=== PATIENT | male | born 1955 | race Caucasian/White ===

== ENCOUNTER 2019-08-04 20:51 | Inpatient (IN) ==
[2019-08-04] MEDS ORDERED: ALBUTEROL SULFATE/IPRATROPIUM 3 ML NEBU IH ONE (21:04)
[2019-08-04] MEDS ORDERED: ALBUTEROL SULFATE 2.5 MG/0.5 ML VIAL.NEB IH ONE (21:08)
[2019-08-04] MEDS ORDERED: METHYLPREDNISOLONE SOD SUCC/PF 125 MG/2 ML VIAL IV ONE (21:11)
--- NOTE | 2019-08-04 21:18 | ERNOTE ---
Dyspnea - Date Date of Service: 08/04/19 - General Presenting Symptoms: shortness of breath, difficulty of breathing, wheezing Time Seen by Provider: 08/04/19 21:04 Source: patient, family Exam Limitations: no limitations - Immun/Allergies/Home Medications Allergies/Adverse Reactions: Allergies No Known Allergies Allergy (Verified 08/04/19 21:00) Home Medications: HOME MEDICATIONS ibuprofen-diphenhydramine citrate 200 mg-38 mg tablet 1 cap PO HS 12/27/18 [Last Taken Unknown] aspirin 81 mg tablet,delayed release 81 mg PO DAILY 03/09/19 [Last Taken Unknown] albuterol sulfate 90 mcg/actuation aerosol inhaler 2 puff IH QID PRN #18 g 03/20/19 [Last Taken Unknown] amlodipine 10 mg tablet 10 mg PO DAILY #90 tab 03/20/19 [Last Taken Unknown] losartan 100 mg tablet 100 mg PO DAILY #90 tab 03/20/19 [Last Taken Unknown] atorvastatin 80 mg tablet See Rx Instructions .ROUTE .COMPLEX #90 tablet 06/14/19 [Last Taken Unknown] cholecalciferol (vitamin D3) 2,000 unit capsule 2,000 unit PO DAILY #100 cap 06/19/19 [Last Taken Unknown] metoprolol tartrate 50 mg tablet 50 mg PO BID #60 tab 06/19/19 [Last Taken Unknown] omeprazole 20 mg capsule,delayed release 20 mg PO DAILY #90 cap 06/19/19 [Last Taken Unknown] sertraline 100 mg tablet 100 mg PO DAILY #90 tab 06/19/19 [Last Taken Unknown] - History of Present Illness Narrative: Patient is a 64 years old male brought in by his with shortness of breath, difficulty breathing, and wheezing. Patient reports waking up at 5:30 in the morning today with wheezing. He took a nebulizing treatment of albuterol, with mild improvement, but this evening his SOB worsen. Patient reports being an everyday smoker of a pack a day. His report that he was told one that his lungs functions are only at 65%. Patient also has hypertension and was told he had a thoracic abdominal aorta aneurysm that is monitor. 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 Initiating event: Reports: upper resp illness, exposure to smoke Frequency of episodes: Reports: occassional episodes Modifying Factors - (Improves): Reports: activity, albuterol, oxygen, coughing Modifying Factors (Worsens): Reports: coughing, lying down, other - smoking Associated Symptoms-Dyspnea: Reports: cough, wheezing Review of Systems - Review of Systems Constitutional: Absent: fever EYE: Absent: blurred vision ENT: Absent: ear pain Respiratory: Present: shortness of breath, cough, orthopnea, wheezing Cardiology: Absent: chest pain Gastrointestinal/Abdominal: Absent: nausea, vomiting, abdominal pain Genitourinary: Absent: dysuria Musculoskeletal: Absent: back pain Skin: Absent: rash Hematologic/Lymphatic: Absent: easy bruising All Other Systems: All systems neg except as marked Medical History (Last Reviewed 08/05/19 @ 00:42 by Padma Stevenson RN) Peripheral vascular disease (Chronic) GERD (gastroesophageal reflux disease) (Chronic) Hyperlipidemia (Chronic) Hypertension (Chronic) Carotid artery calcification (Chronic) GERD (gastroesophageal reflux disease) (Chronic) Current every day smoker (Chronic) AAA (abdominal aortic aneurysm) without rupture (Chronic) COPD with asthma (Chronic) Insomnia (Chronic) Major depression (Chronic) AAA (abdominal aortic aneurysm) 3.2 x 3.4 cm (-2015) 3.4 x 3.3 cm (-2016) Bursitis of left elbow Onset Date: 12/25/18 Hyperlipidemia due to dietary fat intake Onset Date: ~2015 LDL 220 Hypertension Onset Date: 12/09/15 Surgical History: Surgical History (Last Reviewed 08/05/19 @ 00:43 by Padma Stevenson RN) History of esophagogastroduodenoscopy (EGD) Eosophageal dilation (2014); Barretts esophagus, hiatal hernia Dr.P sanchez; 3mm sliding hiatal hernia, balloon dilation, NL esophagus (08-26-17) Hx of colectomy Onset Date: ~2014 8- " large colon removed Hx of colonoscopy 2014 Several polyps 08/26/2017 : 5mm polyp, distal sigmoid, pancolonic diverticulosis- recheck in 5 years Family History: Family History (Last Reviewed 08/05/19 @ 00:43 by Padma Stevenson RN) Brother , @ age 67 Liver failure Diabetes Obesity Father , @ age 81 No problems noted. Social History: (Last Reviewed 08/05/19 @ 00:43 by Padma Stveenson RN) Social History: Marital status: lives independently: Yes household members: spouse number of children: 3 current occupational status: retired current occupation: retired [employer] Highest education level completed: high school graduate Service: No Tobacco: Smoking Status: Current every day smoker tobacco type: cigarettes Smoking cigarettes per day: 20.0 Smoking packs per day: 1 Alcohol: alcohol intake: current Alcohol type: beer alcohol intake frequency: 3 or more drinks per day Substance Use: substance use type: does not use Dietary Habits: caffeine: Yes Type: coffee Physical Exam - Physical Exam General Appearance: Present: alert, moderate distress Head Exam: Present: normal inspection Eye Exam: Normal inspection: bilateral Ears, Nose, Throat: Present: normal ENT inspection Neck: Present: normal inspection Respiratory: Present: respiratory distress, decreased breath sounds, wheezing, other - tachypneic Back Exam: Present: normal inspection Extremity Exam: Present: normal inspection Neurological Exam: Present: alert Progress - Vital Signs Vital Signs: Vital Signs 08/04/19 20:56 Temperature 37.4 C Pulse Rate 87 Respiratory Rate 32 H Blood Pressure 194/102 H O2 Sat by Pulse Oximetry 93 - EKG EKG #1 EKG: NSR - X-Ray X-Ray #1 Interpretation: Interp. by me, Reviewed by me - No acute cardiopulmonary findings, flattening of the diaphragm and hyperinflated lungs consistent with COPD - Progress/Reassessment Chief Complaint: Dyspnea - Transfer of Care Expected Disposition: Admit Plan - Plan Plan: patient is a 64 years old male who presented short of breath, tachypneic, and wheezing, on arrival he was given an hour DuoNeb treatment, 125 mg of Solu- Medrol, and 1 gm of ceftriaxone which improved his tachypnea, wheezing, and breathing. He was ambulated to check his oxygenation and he desaturated at 88% on room air. His labs were unremarkable, I discussed with him and his family my recommendation of admitting for COPD exacerbation treatment with antibiotic, corticosteroid and regular neb treatment until improvement of saturation. Patient agreed with hospitalization, case was discussed with Dr. Alvarado who accepted admission. Departure Clinical Impression: COPD exacerbation - Departure Disposition: Still a patient Condition: Fair
[2019-08-04 21:23] LABS: Hemoglobin 14.6 gm/dL (13.5-18.0); Mean Cell Volume 97.2 fl (78-100); Mean Corpuscular Hemoglobin 33.8 pg (27-31); Mean Corpuscular Hgb Conc 34.8 g/dl (32-36); Mean Platelet Volume 8.6 fl (8-11.3); Neutrophil # 5.4 K/mm3 (1.3-6.0); Neutrophil % 67.2 % (42-75.0); Platelet Count 212 K/mm3 (150-450); Red Blood Count 4.32 M/mm3 (4.7-6.0); Red Cell Distribution Width 12.1 % (11.5-14.0); White Blood Count 8.1 K/mm3 (4.0-10.5)
[2019-08-04 21:42] LABS: ALT 63 U/L (19-67); AST 40 U/L (0-48); Alkaline Phosphatase * 104 U/L (50-170); Anion Gap 14.3 mmol/L (6.8-13.8); BUN/Creatinine Ratio 15.6 (9.0-21.6); Bilirubin, Total 0.2 mg/dL (0.0-1.1); Blood Urea Nitrogen 12 mg/dL (6-23); Ca. Corrected For Albumin 8.9 mg/dL (8.4-10.2); Calcium * 9.2 mg/dL (7.9-10.9); Carbon Dioxide 25.8 mmol/L (24-32.6); Chloride 98 mmol/L (97-106); Glucose * 106 mg/dL (70-110); Potassium 4.1 mmol/L (3.4-4.6); Sodium 134 mmol/L (132-142)
[2019-08-04 21:44] LABS: Troponin I Less than 0.017 ng/mL (0.00-0.10)
[2019-08-05] MEDS ORDERED: cefTRIAXone SODIUM 1,000 MG/100 ML BAG IV ONE (00:10)
[2019-08-05 07:47] LABS: Urine Bilirubin Negative (NEGATIVE); Urine Blood Negative /ul (NEGATIVE); Urine Ketone Negative (NEGATIVE); Urine Nitrite Negative (NEGATIVE); Urine Protein Negative (NEGATIVE); Urine Urobilinogen Normal (NORMAL)
[2019-08-05 07:55] LABS: Urine Appearance Clear (CLEAR); Urine Bacteria TRACE; Urine Color Yellow; Urine RBC None Seen /hpf (0-5); Urine WBC 0-5 /hpf (0-5)
[2019-08-05] MEDS ORDERED: AZITHROMYCIN 250 MG TABLET PO ONE (10:23)
--- NOTE | 2019-08-05 10:26 | HPDIS ---
Chief Complaint - Chief Complaint Date of Service: 08/05/19 Time of Service: 10:26 Medical History (Last Reviewed 08/05/19 @ 00:42 by Padma Stevenson RN) Peripheral vascular disease (Chronic) GERD (gastroesophageal reflux disease) (Chronic) Hyperlipidemia (Chronic) Hypertension (Chronic) Carotid artery calcification (Chronic) GERD (gastroesophageal reflux disease) (Chronic) Current every day smoker (Chronic) AAA (abdominal aortic aneurysm) without rupture (Chronic) COPD with asthma (Chronic) Insomnia (Chronic) Major depression (Chronic) AAA (abdominal aortic aneurysm) 3.2 x 3.4 cm (-2015) 3.4 x 3.3 cm (-2016) Bursitis of left elbow Onset Date: 12/25/18 Hyperlipidemia due to dietary fat intake Onset Date: ~2015 LDL 220 Hypertension Onset Date: 12/09/15 Surgical History: Surgical History (Last Reviewed 08/05/19 @ 00:43 by Padma Stevenson RN) History of esophagogastroduodenoscopy (EGD) Eosophageal dilation (2014); Barretts esophagus, hiatal hernia ; 3mm sliding hiatal hernia, balloon dilation, NL esophagus (08-26-17) Hx of colectomy Onset Date: ~2014 8- " large colon removed Hx of colonoscopy 2014 Several polyps 08/26/2017 : 5mm polyp, distal sigmoid, pancolonic diverticulosis- recheck in 5 years Family History: Family History (Last Reviewed 08/05/19 @ 00:43 by Padma Stevenson, FRANCOIS) Brother , @ age 67 Liver failure Diabetes Obesity Father , @ age 81 No problems noted. Social History: (Last Reviewed 08/05/19 @ 00:43 by Padma Stevenson, FRANCOIS) Social History: Marital status: lives independently: Yes household members: spouse number of children: 3 current occupational status: retired current occupation: retired [employer] Highest education level completed: high school graduate Service: No Tobacco: Smoking Status: Current every day smoker tobacco type: cigarettes Smoking cigarettes per day: 20.0 Smoking packs per day: 1 Alcohol: alcohol intake: current Alcohol type: beer alcohol intake frequency: 3 or more drinks per day Substance Use: substance use type: does not use Dietary Habits: caffeine: Yes Type: coffee Allergies/Adverse Reactions: Allergies Allergy/AdvReac Type Severity Reaction Status Date / Time No Known Allergies Allergy Verified 08/04/19 21:00 Home Medications: HOME MEDICATIONS ibuprofen-diphenhydramine citrate 200 mg-38 mg tablet 1 cap PO HS 12/27/18 [Last Taken 08/04/19] aspirin 81 mg tablet,delayed release 81 mg PO DAILY 03/09/19 [Last Taken 08/04/19] albuterol sulfate 90 mcg/actuation aerosol inhaler 2 puff IH QID PRN #18 g 03/20/19 [Last Taken 08/04/19] amlodipine 10 mg tablet 10 mg PO DAILY #90 tab 03/20/19 [Last Taken 08/04/19] losartan 100 mg tablet 100 mg PO DAILY #90 tab 03/20/19 [Last Taken 08/04/19] cholecalciferol (vitamin D3) 2,000 unit capsule 2,000 unit PO DAILY #100 cap 06/19/19 [Last Taken 08/04/19] metoprolol tartrate 50 mg tablet 50 mg PO BID #60 tab 06/19/19 [Last Taken 08/04/19] omeprazole 20 mg capsule,delayed release 20 mg PO DAILY #90 cap 06/19/19 [Last Taken 08/04/19] sertraline 100 mg tablet 100 mg PO DAILY #90 tab 06/19/19 [Last Taken 08/04/19] Atorvastatin Calcium [Lipitor] 80 mg PO HS 08/05/19 [Last Taken 08/04/19] Magnesium 250 mg PO DAILY 08/05/19 [Last Taken 08/04/19] Exam - Exam Vital Signs: Vital Signs - Last Taken Temp 36.3 C 08/05/19 08:44 Pulse 86 08/05/19 08:44 Resp 20 08/05/19 08:44 BP 156/85 H 08/05/19 08:44 Pulse Ox 93 08/05/19 08:44 Diagnostic Studies: Abnormal Lab Results 08/04/19 08/04/19 08/04/19 Range/Units 21:08 21: 21: RBC 4.32 L (4.7-6.0) M/mm3 MCH 33.8 H (27-31) pg Lymphocytes % 16.1 L (20-51) % Monocytes % 12.4 H (0.0-9) % Lymphocytes # 1.30 L (1.5-3.5) k/mm3 pO2 70.3 L (83.0-108.0) mmHg Total CO2 26.3 H (19.0-24.0) mmol/L Anion Gap 14.3 H (6.8-13.8) mmol/L Procalcitonin (0.05-0.50) ng/mL 08/04/19 Range/Units 21:19 RBC (4.7-6.0) M/mm3 MCH (27-31) pg Lymphocytes % (20-51) % Monocytes % (0.0-9) % Lymphocytes # (1.5-3.5) k/mm3 pO2 (83.0-108.0) mmHg Total CO2 (19.0-24.0) mmol/L Anion Gap (6.8-13.8) mmol/L Procalcitonin Less than 0.05 L (0.05-0.50) ng/mL Laboratory Results WBC 8.1 K/mm3 (4.0-10.5) 08/04/19 21:19 RBC 4.32 M/mm3 (4.7-6.0) L 08/04/19 21:19 Hgb 14.6 gm/dL (13.5-18.0) 08/04/19 21: Hct 42.0 % (42.0-52.0) 08/04/19 21: MCV 97.2 fl (78-100) 08/04/19 21:19 MCH 33.8 pg (27-31) H 08/04/19 21: MCHC 34.8 g/dl (32-36) 08/04/19 21: RDW 12.1 % (11.5-14.0) 08/04/19 21: Plt Count 212 K/mm3 (150-450) 08/04/19 21: MPV 8.6 fl (8-11.3) 08/04/19 21: Immature Gran % (Auto) 0.40 % (0.001-0.429) 08/04/19 21: Immature Gran # (Auto) 0.03 K/mm3 (0.000-0.0310) 08/04/19 21: Neutrophils % 67.2 % (42-75.0) 08/04/19 21:19 Lymphocytes % 16.1 % (20-51) L 08/04/19 21: Monocytes % 12.4 % (0.0-9) H 08/04/19 21:19 Eosinophils % 3.0 % (0.0-3.0) 08/04/19 21: Basophils % 0.9 % (0.0-1.0) 08/04/19 21: Nucleated RBC % 0.0 k/mm3 (0-1) 08/04/19 21: Neutrophils # 5.4 K/mm3 (1.3-6.0) 08/04/19 21: Lymphocytes # 1.30 k/mm3 (1.5-3.5) L 08/04/19 21: Monocytes # 1.0 k/mm3 (0.0-1.0) 08/04/19 21: Eosinophils # 0.2 k/mm3 (0.0-0.7) 08/04/19 21: Absolute Basophils 0.1 k/mm3 (0.0-0.1) 08/04/19 21:19 pCO2 38.0 mmHg (35.0-48.0) 08/04/19 21:08 pO2 70.3 mmHg (83.0-108.0) L 08/04/19 21:08 HCO3 25.2 mmol/L (21.0-28.0) 08/04/19 21:08 Total CO2 26.3 mmol/L (19.0-24.0) H 08/04/19 21:08 Base Excess 1.2 mmol/L (-2.0-3.0) 08/04/19 21:08 ABG pH 7.44 (7.35-7.45) 08/04/19 21:08 ABG O2 Sat (Measured) 94.7 % (94.0-98.0) 08/04/19 21:08 Sodium 134 mmol/L (132-142) 08/04/19 21: Plasma Sodium 134 mmol/L (130-142) 08/04/19 21:19 Potassium 4.1 mmol/L (3.4-4.6) 08/04/19 21: Chloride 98 mmol/L (97-106) 08/04/19: Carbon Dioxide 25.8 mmol/L (24-32.6) 08/04/19 21: Anion Gap 14.3 mmol/L (6.8-13.8) H 08/04/19 21: BUN 12 mg/dL (6-23) 08/04/19 21: Creatinine 0.77 mg/dL (0.4-1.4) 08/04/19 21:19 Est GFR (Non-Af Amer) 107 mL/min (60-130) 08/04/19 21: BUN/Creatinine Ratio 15.6 (9.0-21.6) 08/04/19 21: Random Glucose 106 mg/dL (70-110) 08/04/19 21: Calcium 9.2 mg/dL (7.9-10.9) 08/04/19: Calcium Adj for Albumin 8.9 mg/dL (8.4-10.2) 08/04/19 21: Total Bilirubin 0.2 mg/dL (0.0-1.1) 08/04/19 21: AST 40 U/L (0-48) 08/04/19 21: ALT 63 U/L (19-67) 08/04/19 21: Alkaline Phosphatase 104 U/L (50-170) 08/04/19 21: Troponin I Less than 0.017 ng/mL (0.00-0.10) 08/04/19 21: Total Protein 7.0 gm/dL (6.2-8.2) 08/04/19 21: Albumin 4.0 gm/dl (3.4-5.0) 08/04/19 21: Procalcitonin Less than 0.05 ng/mL (0.05-0.50) L 08/04/19 21: Urine Color Yellow 08/05/19 07:24 Urine Appearance Clear (CLEAR) 08/05/19 07:24 Urine pH 7.0 pH (5.0-7.0) 08/05/19 07:24 Ur Specific Brandon 1.010 SP.GR. (1.005-1.030) 08/05/19 07:24 Urine Protein Negative mg/dL (NEGATIVE) 08/05/19 07:24 Urine Glucose (UA) Negative mg/dL (NEGATIVE) 08/05/19 07:24 Urine Ketones Negative mg/dL (NEGATIVE) 08/05/19 07:24 Urine Blood Negative /ul (NEGATIVE) 08/05/19 07:24 Urine Nitrate Negative (NEGATIVE) 08/05/19 07:24 Urine Bilirubin Negative mg/dl (NEGATIVE) 08/05/19 07:24 Urine Urobilinogen Normal EU/dl (NORMAL) 08/05/19 07:24 Ur Leukocyte Esterase Negative /ul (NEGATIVE) 08/05/19 07:24 Urine RBC None seen /hpf (0-5) 08/05/19 07:24 Urine WBC 0-5 /hpf (0-5) 08/05/19 07:24 Ur Epithelial Cells None seen /hpf (0-5) 08/05/19 07:24 Urine Bacteria Trace (NONE) 08/05/19 07:24 Urine Culture Comments No culture indicated 08/05/19 07:24 Results and Findings: Lab Pending Results 08/04/19 21:08: pCO2 38.0, pO2 70.3 L, HCO3 25.2, Total CO2 26.3 H, Base Excess 1.2, ABG pH 7.44, ABG O2 Sat (Measured) 94.7 08/04/19 21:19: WBC 8.1, RBC 4.32 L, Hgb 14.6, Hct 42.0, MCV 97.2, MCH 33.8 H, MCHC 34.8, RDW 12.1, Plt Count 212, MPV 8.6, Immature Gran % (Auto) 0.40, Immature Gran # (Auto) 0.03, Neutrophils % 67.2, Lymphocytes % 16.1 L, Monocytes % 12.4 H, Eosinophils % 3.0, Basophils % 0.9, Nucleated RBC % 0.0, Neutrophils # 5.4, Lymphocytes # 1.30 L, Monocytes # 1.0, Eosinophils # 0.2, Absolute Basophils 0.1 08/04/19 21:19: Sodium 134, Plasma Sodium 134, Potassium 4.1, Chloride 98, Carbon Dioxide 25.8, Anion Gap 14.3 H, BUN 12, Creatinine 0.77, Est GFR (Non-Af Amer) 107, BUN/Creatinine Ratio 15.6, Random Glucose 106, Calcium 9.2, Calcium Adj for Albumin 8.9, Total Bilirubin 0.2, AST 40, ALT 63, Alkaline Phosphatase 104, Troponin I Less than 0.017, Total Protein 7.0, Albumin 4.0 08/04/19 21:19: Procalcitonin Less than 0.05 L 08/05/19 07:24: Urine Color Yellow, Urine Appearance Clear, Urine pH 7.0, Ur Specific Brandon 1.010, Urine Protein Negative, Urine Glucose (UA) Negative, Urine Ketones Negative, Urine Blood Negative, Urine Nitrate Negative, Urine Bilirubin Negative, Urine Urobilinogen Normal, Ur Leukocyte Esterase Negative, Urine RBC None seen, Urine WBC 0-5, Ur Epithelial Cells None seen, Urine Bacteria Trace, Urine Culture Comments No culture indicated Disposition: Home self-care Condition: Fair Referrals: Paul Heard DO [Primary Care Provider] - Complete Home Medications List: Complete Home Medication List: ibuprofen-diphenhydramine citrate 200 mg-38 mg tablet 1 cap PO HS 12/27/18 aspirin 81 mg tablet,delayed release 81 mg PO DAILY 03/09/19 albuterol sulfate 90 mcg/actuation aerosol inhaler 2 puff IH QID PRN #18 g 03/20/19 amlodipine 10 mg tablet 10 mg PO DAILY #90 tab 03/20/19 losartan 100 mg tablet 100 mg PO DAILY #90 tab 03/20/19 cholecalciferol (vitamin D3) 2,000 unit capsule 2,000 unit PO DAILY #100 cap 06/19/19 metoprolol tartrate 50 mg tablet 50 mg PO BID #60 tab 06/19/19 omeprazole 20 mg capsule,delayed release 20 mg PO DAILY #90 cap 06/19/19 sertraline 100 mg tablet 100 mg PO DAILY #90 tab 06/19/19 Atorvastatin Calcium [Lipitor] 80 mg PO HS 08/05/19 Magnesium 250 mg PO DAILY 08/05/19
[2019-08-05] MEDS: ALBUTEROL SULFATE/IPRATROPIUM 3 ML NEBU IH PRN ×4 (11:11→19:40)
[2019-08-05] MEDS: predniSONE 20 MG TABLET PO SCH (11:49)
[2019-08-05] MEDS ORDERED: ALBUTEROL SULFATE 2.5 MG/0.5 ML VIAL.NEB IH ONE (12:05)
[2019-08-05] MEDS ORDERED: ALBUTEROL SULFATE 200 PUFF INHALER IH PRN (18:26)
[2019-08-05] MEDS: NICOTINE 21 MG PATC TD SCH (19:54)
[2019-08-05] MEDS ORDERED: ROSUVASTATIN CALCIUM 10 MG TABLET ONE (20:03)
[2019-08-05] MEDS: ROSUVASTATIN CALCIUM 20 MG TABLET PO SCH (20:05)
[2019-08-05] MEDS: METOPROLOL TARTRATE 50 MG TABLET PO SCH (20:05)
[2019-08-05] MEDS: IBUPROFEN PO SCH (20:08)
[2019-08-05] MEDS: DIPHENHYDRAMINE PO SCH (20:08)
[2019-08-05] MEDS ORDERED: diphenhydrAMINE HCL 50 MG CAPSULE PO PRN (21:45)
--- NOTE | 2019-08-05 23:31 | HP ---
Chief Complaint - Chief Complaint Date of Service: 08/05/19 Time of Service: 10:26 Chief Complaint: Shortness of breath History of Present Illness: Farooq is a 64 yo male with COPD. He reports shortness of breath over the past few days. He usually does not have to use inhalers often but has in the past 24 hours. No fever, chills, nause, or vomiting. No sick contacts or recent travel. No changes in medications. He was given a breathing treatment and steroids in the ER and he now feels better. His oxygen has been good. He reports more shortness of breath with activity. Medical History (Last Reviewed 08/05/19 @ 00:42 by Padma Stevenson RN) Peripheral vascular disease (Chronic) GERD (gastroesophageal reflux disease) (Chronic) Hyperlipidemia (Chronic) Hypertension (Chronic) Carotid artery calcification (Chronic) GERD (gastroesophageal reflux disease) (Chronic) Current every day smoker (Chronic) AAA (abdominal aortic aneurysm) without rupture (Chronic) COPD with asthma (Chronic) Insomnia (Chronic) Major depression (Chronic) AAA (abdominal aortic aneurysm) 3.2 x 3.4 cm () 3.4 x 3.3 cm () Bursitis of left elbow Onset Date: 12/25/18 Hyperlipidemia due to dietary fat intake Onset Date: ~2015 LDL 220 Hypertension Onset Date: 12/09/15 Surgical History: Surgical History (Last Reviewed 08/05/19 @ 00:43 by Padma Stevenson, RN) History of esophagogastroduodenoscopy (EGD) Eosophageal dilation (2014); Barretts esophagus, hiatal hernia ; 3mm sliding hiatal hernia, balloon dilation, NL esophagus (08-26-17) Hx of colectomy Onset Date: ~05-05 " large colon removed Hx of colonoscopy 2014 Several polyps 08/26/2017 : 5mm polyp, distal sigmoid, pancolonic diverticulosis- recheck in 5 years Family History: Family History (Last Reviewed 08/05/19 @ 00:43 by Padma Stevenson, RN) Brother , @ age 67 Liver failure Diabetes Obesity Father , @ age 81 No problems noted. Social History: (Last Reviewed 08/05/19 @ 00:43 by Padma Stevenson, RN) Social History: Marital status: lives independently: Yes household members: spouse number of children: 3 current occupational status: retired current occupation: retired [employer] Highest education level completed: high school graduate Service: No Tobacco: Smoking Status: Current every day smoker tobacco type: cigarettes Smoking cigarettes per day: 20.0 Smoking packs per day: 1 Alcohol: alcohol intake: current Alcohol type: beer alcohol intake frequency: 3 or more drinks per day Substance Use: substance use type: does not use Dietary Habits: caffeine: Yes Type: coffee Review Of Systems (GEN) - Review of Systems Generalized/Overall Review: Present: Weakness, Fatigue. Absent: Chills, Fever EENTM: Present: No Symptoms Reported Respiratory: Present: Cough, Shortness of Breath, Wheezing. Absent: Orthopnea Cardiac: Absent: Chest Pain, Edema, Palpitations, Syncope Abdominal: Absent: Nausea, Vomiting Genitourinary: Present: No Symptoms Reported Musculoskeletal: Present: No Symptoms Reported Neurological: Present: No Symptoms Reported Skin: Present: No Symptoms Reported Endocrine: Present: No Symptoms Reported Allergies/Adverse Reactions: Allergies Allergy/AdvReac Type Severity Reaction Status Date / Time No Known Allergies Allergy Verified 08/04/19 21:00 Home Medications: HOME MEDICATIONS ibuprofen-diphenhydramine citrate 200 mg-38 mg tablet 1 cap PO HS 12/27/18 [Last Taken 08/04/19] aspirin 81 mg tablet,delayed release 81 mg PO DAILY 03/09/19 [Last Taken 08/04/19] albuterol sulfate 90 mcg/actuation aerosol inhaler 2 puff IH QID PRN #18 g 03/20/19 [Last Taken 08/04/19] amlodipine 10 mg tablet 10 mg PO DAILY #90 tab 03/20/19 [Last Taken 08/04/19] losartan 100 mg tablet 100 mg PO DAILY #90 tab 03/20/19 [Last Taken 08/04/19] cholecalciferol (vitamin D3) 2,000 unit capsule 2,000 unit PO DAILY #100 cap 06/19/19 [Last Taken 08/04/19] metoprolol tartrate 50 mg tablet 50 mg PO BID #60 tab 06/19/19 [Last Taken 08/04/19] omeprazole 20 mg capsule,delayed release 20 mg PO DAILY #90 cap 06/19/19 [Last Taken 08/04/19] sertraline 100 mg tablet 100 mg PO DAILY #90 tab 06/19/19 [Last Taken 08/04/19] Atorvastatin Calcium [Lipitor] 80 mg PO HS 08/05/19 [Last Taken 08/04/19] Magnesium 250 mg PO DAILY 08/05/19 [Last Taken 08/04/19] Exam - Exam Vital Signs: Vital Signs - Last Taken Temp 36.3 C 08/05/19 18:48 Pulse 84 08/05/19 22:39 Resp 20 08/05/19 22:39 BP 152/92 H 08/05/19 22:39 Pulse Ox 93 08/05/19 22:39 Constitutional: Present: Alert, Oriented x3, Cooperative ENT Exam: Present: hearing grossly normal Eye Exam: bilateral eye: normal inspection Respiratory: Present: no respiratory distress, wheezing Cardiovascular/Chest: Present: regular rate, rhythm, no murmur Abdomen: Present: Normal bowel sounds, soft, nontender, nondistended Skin Exam: Present: normal color, warm/dry, no cyanosis Neurologic: Present: alert, normal mood/affect, oriented x 3 Appearance: Present: appropriate appearance, appropriate insight Eye contact: Present: cooperative, good eye contact, normal speech Thoughts: Present: normal thought pattern, no apparent hallucination Diagnostic Studies: Laboratory Results WBC 8.1 K/mm3 (4.0-10.5) 08/04/19 21: RBC 4.32 M/mm3 (4.7-6.0) L 08/04/19 21: Hgb 14.6 gm/dL (13.5-18.0) 08/04/19: Hct 42.0 % (42.0-52.0) 08/04/19 21: MCV 97.2 fl (78-100) 08/04/19 21: MCH 33.8 pg (27-31) H 08/04/19 21: MCHC 34.8 g/dl (32-36) 08/04/19: RDW 12.1 % (11.5-14.0) 08/04/19 21: Plt Count 212 K/mm3 (150-450) 08/04/19 21: MPV 8.6 fl (8-11.3) 08/04/19 21: Immature Gran % (Auto) 0.40 % (0.001-0.429) 08/04/19 21: Immature Gran # (Auto) 0.03 K/mm3 (0.000-0.0310) 08/04/19 21: Neutrophils % 67.2 % (42-75.0) 08/04/19 21: Lymphocytes % 16.1 % (20-51) L 08/04/19 21: Monocytes % 12.4 % (0.0-9) H 08/04/19 21: Eosinophils % 3.0 % (0.0-3.0) 08/04/19 21: Basophils % 0.9 % (0.0-1.0) 08/04/19: Nucleated RBC % 0.0 k/mm3 (0-1) 08/04/19 21: Neutrophils # 5.4 K/mm3 (1.3-6.0) 08/04/19 21: Lymphocytes # 1.30 k/mm3 (1.5-3.5) L 08/04/19 21: Monocytes # 1.0 k/mm3 (0.0-1.0) 08/04/19 21: Eosinophils # 0.2 k/mm3 (0.0-0.7) 08/04/19 21: Absolute Basophils 0.1 k/mm3 (0.0-0.1) 08/04/19 21: pCO2 38.0 mmHg (35.0-48.0) 08/04/19 21:08 pO2 70.3 mmHg (83.0-108.0) L 08/04/19 21:08 HCO3 25.2 mmol/L (21.0-28.0) 08/04/19 21: Total CO2 26.3 mmol/L (19.0-24.0) H 08/04/19 21:08 Base Excess 1.2 mmol/L (-2.0-3.0) 08/04/19 21: ABG pH 7.44 (7.35-7.45) 08/04/19 21: ABG O2 Sat (Measured) 94.7 % (94.0-98.0) 08/04/19 21:08 Sodium 134 mmol/L (132-142) 08/04/19 21: Plasma Sodium 134 mmol/L (130-142) 08/04/19 21:19 Potassium 4.1 mmol/L (3.4-4.6) 08/04/19 21: Chloride 98 mmol/L (97-106) 08/04/19 21:19 Carbon Dioxide 25.8 mmol/L (24-32.6) 08/04/19 21:19 Anion Gap 14.3 mmol/L (6.8-13.8) H 08/04/19 21: BUN 12 mg/dL (6-23) 08/04/19 21:19 Creatinine 0.77 mg/dL (0.4-1.4) 08/04/19 21:19 Est GFR (Non-Af Amer) 107 mL/min (60-130) 08/04/19 21: BUN/Creatinine Ratio 15.6 (9.0-21.6) 08/04/19 21: Random Glucose 106 mg/dL (70-110) 08/04/19 21: Calcium 9.2 mg/dL (7.9-10.9) 08/04/19 21: Calcium Adj for Albumin 8.9 mg/dL (8.4-10.2) 08/04/19 21: Total Bilirubin 0.2 mg/dL (0.0-1.1) 08/04/19 21: AST 40 U/L (0-48) 08/04/19 21: ALT 63 U/L (19-67) 08/04/19 21:19 Alkaline Phosphatase 104 U/L (50-170) 08/04/19 21: Troponin I Less than 0.017 ng/mL (0.00-0.10) 08/04/19 21: Total Protein 7.0 gm/dL (6.2-8.2) 08/04/19 21: Albumin 4.0 gm/dl (3.4-5.0) 08/04/19 21:19 Procalcitonin Less than 0.05 ng/mL (0.05-0.50) L 08/04/19 21:19 Urine Color Yellow 08/05/19 07:24 Urine Appearance Clear (CLEAR) 08/05/19 07:24 Urine pH 7.0 pH (5.0-7.0) 08/05/19 07:24 Ur Specific [place] 1.010 SP.GR. (1.005-1.030) 08/05/19 07:24 Urine Protein Negative mg/dL (NEGATIVE) 08/05/19 07:24 Urine Glucose (UA) Negative mg/dL (NEGATIVE) 08/05/19 07:24 Urine Ketones Negative mg/dL (NEGATIVE) 08/05/19 07:24 Urine Blood Negative /ul (NEGATIVE) 08/05/19 07:24 Urine Nitrate Negative (NEGATIVE) 08/05/19 07:24 Urine Bilirubin Negative mg/dl (NEGATIVE) 08/05/19 07:24 Urine Urobilinogen Normal EU/dl (NORMAL) 08/05/19 07:24 Ur Leukocyte Esterase Negative /ul (NEGATIVE) 08/05/19 07:24 Urine RBC None seen /hpf (0-5) 08/05/19 07:24 Urine WBC 0-5 /hpf (0-5) 08/05/19 07:24 Ur Epithelial Cells None seen /hpf (0-5) 08/05/19 07:24 Urine Bacteria Trace (NONE) 08/05/19 07:24 Urine Culture Comments No culture indicated 08/05/19 07:24 Assessment/Plan - Narrative Narrative: Farooq is a 64 yo male with COPD exacerbation. Will admit to observation at this time as he is feeling better. Will switch to oral prednisone, continue breathing treatments. Will have him work on ambulation today and see how he does. If he can ambulate without difficulty he could be discharged to home later today. If he has worsening shortness of breath he may need to be monitored over night. - Assessment/Plan (1) COPD exacerbation Problem: Acute
[2019-08-06] MEDS: ALBUTEROL SULFATE/IPRATROPIUM 3 ML NEBU IH PRN ×5 (02:59→21:46)
[2019-08-06] MEDS ORDERED: METHYLPREDNISOLONE SOD SUCC/PF 40 MG/ML VIAL IV SCH (04:00)
[2019-08-06] MEDS ORDERED: ALBUTEROL SULFATE 2.5 MG/0.5 ML VIAL.NEB IH PRN (07:57)
[2019-08-06] MEDS ORDERED: amLODIPine BESYLATE 10 MG TABLET PO SCH (09:00)
[2019-08-06] MEDS ORDERED: OMEPRAZOLE 20 MG CAPSULE.SA PO SCH (09:00)
[2019-08-06] MEDS: CHOLECALCIFEROL 1,000 UNIT CAPSULE PO SCH (09:07)
[2019-08-06] MEDS: MAGNESIUM OXIDE 400 MG TABLET PO SCH (09:07)
[2019-08-06] MEDS: AZITHROMYCIN 250 MG TABLET PO SCH (09:07)
[2019-08-06] MEDS: ASPIRIN 81 MG TABLET.DR PO SCH (09:08)
[2019-08-06] MEDS: METOPROLOL TARTRATE 50 MG TABLET PO SCH (09:08)
[2019-08-06] MEDS: SERTRALINE HCL 100 MG TABLET PO SCH (09:08)
[2019-08-06] MEDS: predniSONE 20 MG TABLET PO SCH (09:08)
[2019-08-06] MEDS: LOSARTAN POTASSIUM 50 MG TABLET PO SCH (09:08)
[2019-08-06] MEDS: PANTOPRAZOLE SODIUM 20 MG TABLET.DR PO SCH (09:09)
[2019-08-06 09:45] LABS: Hematocrit 46.1 % (42.0-52.0); Hemoglobin 15.4 gm/dL (13.5-18.0); Mean Cell Volume 100.7 fl (78-100); Mean Corpuscular Hemoglobin 33.6 pg (27-31); Mean Corpuscular Hgb Conc 33.4 g/dl (32-36); Mean Platelet Volume 8.6 fl (8-11.3); Neutrophil # 14.9 K/mm3 (1.3-6.0); Neutrophil % 90.3 % (42-75.0); Platelet Count 261 K/mm3 (150-450); Red Blood Count 4.58 M/mm3 (4.7-6.0); Red Cell Distribution Width 12.9 % (11.5-14.0); White Blood Count 16.5 K/mm3 (4.0-10.5)
[2019-08-06 10:04] LABS: ALT 116 U/L (19-67); AST 79 U/L (0-48); Albumin * 4.3 gm/dl (3.4-5.0); Alkaline Phosphatase * 108 U/L (50-170); Anion Gap 11.6 mmol/L (6.8-13.8); BUN/Creatinine Ratio 13.3 (9.0-21.6); Bilirubin, Total 0.3 mg/dL (0.0-1.1); Blood Urea Nitrogen 14 mg/dL (6-23); Ca. Corrected For Albumin 8.8 mg/dL (8.4-10.2); Calcium * 9.4 mg/dL (7.9-10.9); Carbon Dioxide 29.1 mmol/L (24-32.6); Chloride 97 mmol/L (97-106); Glucose * 142 mg/dL (70-110); Potassium 4.7 mmol/L (3.4-4.6); Sodium 133 mmol/L (132-142); Total Protein 7.8 gm/dL (6.2-8.2)
[2019-08-06 10:05] LABS: Troponin I Less than 0.017 ng/mL (0.00-0.10)
[2019-08-06] MEDS: METHYLPREDNISOLONE SOD SUCC/PF 40 MG/ML VIAL IV SCH ×2 (14:30→18:56)
[2019-08-06] MEDS: NICOTINE 21 MG PATC TD SCH (18:55)
[2019-08-06] MEDS: ROSUVASTATIN CALCIUM 20 MG TABLET PO SCH (20:25)
[2019-08-06] MEDS: DIPHENHYDRAMINE PO SCH (20:26)
[2019-08-06] MEDS: IBUPROFEN PO SCH (20:26)
--- NOTE | 2019-08-06 22:00 | PN ---
Subjective - Date and Time Seen Date: 08/06/19 Time: 12:45 Subjective Narrative: Farooq Buckner was admitted through the weekend with marked shortness of breath. He has labored to breathe except when he is on BiPAP. This helps him breathe quite a lot. X-rays have been negative for pneumonia. This appears to be a reactive airway disease. He also has a history of hypertension for which he takes losartan, amlodipine, and metoprolol. Because beta-blockers can aggravate asthma I have held the metoprolol. I may decrease or eliminate the amlodipine tomorrow if he is unimproved. It too can cause shortness of breath but does not aggravate asthma. His oxygen saturations have been in normal range. I did teach him how to do pursed lip breathing today and I think that will help him some. He has had 1 dose of Solu-Medrol and I will give him another dose today. Objective - Review of Systems Generalized/Overall Review: Reports: No Symptoms Reported EENTM: Reports: No Symptoms Reported Respiratory: Reports: Shortness of Breath, Wheezing Cardiac: Reports: No Symptoms Reported Abdominal: Reports: No Symptoms Reported Genitourinary Symptoms: Reports: No Symptoms Reported Musculoskeletal Complaints: Reports: No Symptoms Reported Neurological: Reports: No Symptoms Reported Skin: Reports: No Symptoms Reported Endocrine: Reports: No Symptoms Reported Misc: All systems neg except as marked - Vitals Vitals: Last Vital Signs Temp 36.5 C 08/06/19 18:45 Pulse 103 H 08/06/19 21:46 Resp 27 H 08/06/19 21:46 BP 151/98 H 08/06/19 18:45 Pulse Ox 94 08/06/19 21:46 - Abnormal Lab Findings Abnormal Lab Findings: Abnormal Lab Results 08/06/19 08/06/19 Range/Units 09:42 09:42 WBC 16.5 H D (4.0-10.5) K/mm3 RBC 4.58 L (4.7-6.0) M/mm3 MCV 100.7 H (78-100) fl MCH 33.6 H (27-31) pg Immature Gran # (Auto) 0.07 H (0.000-0.0310) K/mm3 Neutrophils % 90.3 H (42-75.0) % Lymphocytes % 5.7 L (20-51) % Neutrophils # 14.9 H (1.3-6.0) K/mm3 Lymphocytes # 0.94 L (1.5-3.5) k/mm3 Potassium 4.7 H (3.4-4.6) mmol/L Random Glucose 142 H D (70-110) mg/dL AST 79 H (0-48) U/L ALT 116 H (19-67) U/L - EKG/Xray Findings EKG: NSR EKG read: Reviewed by me XRAY: facial bones Interpretation: Reviewed by me - Exam Constitutional: Present: Alert, Oriented x3, Cooperative, Well developed, Well nourished, No distress ENT Exam: Present: normal ENT inspection, hearing grossly normal, pharynx normal, TMs normal Neck: Present: non-tender, full range of motion, supple, normal inspection Breasts: Present: Exam deferred Respiratory: Present: chest non-tender, accessory muscle use, wheezing, expiration (prolonged), No rales. Absent: rhonchi Cardiovascular/Chest: Present: normal peripheral pulses, regular rate, rhythm, no chest tenderness, no edema, no gallop, no JVD, no murmur, no rub Abdomen: Present: Normal bowel sounds, soft, nontender, nondistended, no rebound tenderness, no hepatospenomegaly, no masses /Rectal: Present: Exam deferred, External genitalia normal Extremity: Present: normal range of motion, non-tender, normal inspection, no pedal edema, no calf tenderness, normal capillary refill Skin Exam: Present: normal color, warm/dry, no cyanosis Lymphatic: Present: no adenopathy Neurologic: Present: neurology technician II-XII nml as tested Appearance: Present: appropriate appearance, appropriate insight, neat Eye contact: Present: cooperative, good eye contact, normal speech Thoughts: Present: normal thought pattern, no apparent hallucination Assessment/Plan Plan Narrative: 1. Solu-Medrol 60 mg IV piggyback every 6 hours 2. Continue respiratory therapy. 3. Continue supplemental oxygen to keep O2 sat above 92% 4. BiPAP as needed 5. Hold metoprolol 6. Consider holding amlodipine. - Problems/Diagnosis (1) COPD exacerbation Problem: Acute (2) Current every day smoker Problem: Chronic (3) COPD with asthma Problem: Chronic
[2019-08-07] MEDS: METHYLPREDNISOLONE SOD SUCC/PF 40 MG/ML VIAL IV SCH ×4 (00:20→20:06)
[2019-08-07 06:30] LABS: Hematocrit 46.8 % (42.0-52.0); Hemoglobin 15.5 gm/dL (13.5-18.0); Mean Cell Volume 100.4 fl (78-100); Mean Corpuscular Hemoglobin 33.3 pg (27-31); Mean Corpuscular Hgb Conc 33.1 g/dl (32-36); Mean Platelet Volume 8.8 fl (8-11.3); Neutrophil # 14.7 K/mm3 (1.3-6.0); Neutrophil % 88.6 % (42-75.0); Platelet Count 255 K/mm3 (150-450); Red Blood Count 4.66 M/mm3 (4.7-6.0); Red Cell Distribution Width 12.8 % (11.5-14.0); White Blood Count 16.6 K/mm3 (4.0-10.5)
[2019-08-07 06:56] LABS: BUN/Creatinine Ratio 23.1 (9.0-21.6); Carbon Dioxide 30.2 mmol/L (24-32.6); Potassium 4.5 mmol/L (3.4-4.6)
[2019-08-07 06:57] LABS: Albumin * 4.1 gm/dl (3.4-5.0); Anion Gap 10.3 mmol/L (6.8-13.8); Bilirubin, Total 0.3 mg/dL (0.0-1.1); Calcium * 9.4 mg/dL (7.9-10.9); Total Protein 7.6 gm/dL (6.2-8.2)
[2019-08-07] MEDS ORDERED: DILTIAZEM HCL 90 MG CAP.SR.12H PO SCH (08:15)
[2019-08-07] MEDS: LOSARTAN POTASSIUM 50 MG TABLET PO SCH (08:44)
[2019-08-07] MEDS: ASPIRIN 81 MG TABLET.DR PO SCH (08:44)
[2019-08-07] MEDS: SERTRALINE HCL 100 MG TABLET PO SCH (08:45)
[2019-08-07] MEDS: PANTOPRAZOLE SODIUM 20 MG TABLET.DR PO SCH (08:45)
[2019-08-07] MEDS: CHOLECALCIFEROL 1,000 UNIT CAPSULE PO SCH (08:45)
[2019-08-07] MEDS: MAGNESIUM OXIDE 400 MG TABLET PO SCH (08:45)
[2019-08-07] MEDS: AZITHROMYCIN 250 MG TABLET PO SCH (08:45)
[2019-08-07] MEDS: ALBUTEROL SULFATE/IPRATROPIUM 3 ML NEBU IH SCH ×3 (09:05→18:02)
[2019-08-07] MEDS ORDERED: BISACODYL 5 MG TABLET.DR PO ONE (09:12)
[2019-08-07] MEDS: DILTIAZEM HCL 240 MG CAP.SR.24H PO SCH (10:02)
--- NOTE | 2019-08-07 10:07 | PN ---
Subjective - Date and Time Seen Date: 08/07/19 Time: 08:15 Subjective Narrative: Ear is not feeling appreciably different and still gets markedly dyspneic just going to the bathroom. He functions well with the BiPAP device but just on nasal cannula O2 he struggles. He is getting Solu-Medrol every 6 hours. Getting breathing treatments as well. There does not appear to be any infectious component to this so antibiotics are not being given. This appears to be COPD aggravated by reactive lung disease etiology unknown. He has had a predictable increase in his white count to 16,000 the past 2 days and if his blood sugar into the 1 40-1 50 range due to the steroids. He also had a bump in his liver enzymes yesterday but the AST is returned to normal ALT is nearly normal this morning. I will monitor those again tomorrow. Since discontinuing the metoprolol his blood pressure has risen and his heart rate is in the low 100s (109 at time of my exam). Since the amlodipine has no negative chronotropic benefit I will change it to diltiazem CD 240 mg 1 p.o. daily at to control heart rate and blood pressure. I have added hydrochlorothiazide 12.5 mg to synergize the losartan antihypertensive effect. Objective - Review of Systems Generalized/Overall Review: Reports: No Symptoms Reported EENTM: Reports: No Symptoms Reported Respiratory: Reports: Shortness of Breath, Wheezing Cardiac: Reports: Palpitations Abdominal: Reports: Constipation Genitourinary Symptoms: Reports: No Symptoms Reported Musculoskeletal Complaints: Reports: No Symptoms Reported Neurological: Reports: No Symptoms Reported Skin: Reports: No Symptoms Reported Endocrine: Reports: No Symptoms Reported - Vitals Vitals: Last Vital Signs Temp 36.5 C 08/07/19 07:00 Pulse 105 H 08/07/19 08:44 Resp 25 H 08/07/19 07:00 BP 157/98 H 08/07/19 08:44 Pulse Ox 96 08/07/19 07:00 - Abnormal Lab Findings Abnormal Lab Findings: Abnormal Lab Results 08/06/19 08/07/19 08/07/19 Range/Units 09:42 06:26 06:26 WBC 16.6 H (4.0-10.5) K/mm3 RBC 4.66 L (4.7-6.0) M/mm3 MCV 100.4 H (78-100) fl MCH 33.3 H (27-31) pg Immature Gran % (Auto) 0.70 H (0.001-0.429) % Immature Gran # (Auto) 0.12 H (0.000-0.0310) K/mm3 Neutrophils % 88.6 H (42-75.0) % Lymphocytes % 6.3 L (20-51) % Neutrophils # 14.7 H (1.3-6.0) K/mm3 Lymphocytes # 1.05 L (1.5-3.5) k/mm3 Potassium 4.7 H (3.4-4.6) mmol/L BUN/Creatinine Ratio 23.1 H (9.0-21.6) Random Glucose 142 H D 150 H (70-110) mg/dL AST 79 H (0-48) U/L ALT 116 H 87 H (19-67) U/L - Exam Constitutional: Present: Alert, Oriented x3, Cooperative, Well developed, Well nourished, Mild distress, Middle aged ENT Exam: Present: normal ENT inspection, hearing grossly normal, pharynx normal, TMs normal Neck: Present: non-tender, full range of motion, supple, normal inspection Breasts: Present: Exam deferred Respiratory: Present: chest non-tender, wheezing, expiration (prolonged) Cardiovascular/Chest: Present: normal peripheral pulses, regular rate, rhythm, no chest tenderness, no edema, no gallop, no JVD, no murmur, no rub Abdomen: Present: Normal bowel sounds, soft, nontender, nondistended, no rebound tenderness, no hepatospenomegaly, no masses, distended /Rectal: Present: Exam deferred Extremity: Present: normal range of motion, non-tender, normal inspection, no pedal edema, no calf tenderness, normal capillary refill Skin Exam: Present: normal color, warm/dry Lymphatic: Present: no adenopathy Neurologic: Present: heavy media operator II-XII nml as tested, normal cerebellar test Appearance: Present: appropriate appearance, appropriate insight, neat Eye contact: Present: cooperative, good eye contact, normal speech Thoughts: Present: normal thought pattern, no apparent hallucination Assessment/Plan Plan Narrative: 1. DC amlodipine 2. Add Cardizem CD 240 mg 1 p.o. daily 3. Add hydrochlorothiazide 12.5 mg 1 p.o. daily 4. Continue IV steroids 5. Change RT treatments to DuoNeb 6. Dulcolax 2 tablets p.o. now one time only - Problems/Diagnosis (1) COPD exacerbation Problem: Acute (2) Current every day smoker Problem: Chronic (3) COPD with asthma Problem: Chronic
[2019-08-07] MEDS: HYDROCHLOROTHIAZIDE 25 MG TABLET PO SCH (10:56)
[2019-08-07] MEDS: DIPHENHYDRAMINE PO SCH (20:06)
[2019-08-07] MEDS: IBUPROFEN PO SCH (20:06)
[2019-08-07] MEDS: NICOTINE 21 MG PATC TD SCH (20:07)
[2019-08-07] MEDS: ROSUVASTATIN CALCIUM 20 MG TABLET PO SCH (20:07)
[2019-08-08] MEDS: ALBUTEROL SULFATE/IPRATROPIUM 3 ML NEBU IH SCH ×3 (00:02→13:12)
[2019-08-08] MEDS: METHYLPREDNISOLONE SOD SUCC/PF 40 MG/ML VIAL IV SCH ×3 (01:44→13:52)
[2019-08-08] MEDS: LORazepam 1 MG TABLET PO PRN ×2 (08:42→13:59)
[2019-08-08] MEDS: ASPIRIN 81 MG TABLET.DR PO SCH (08:48)
[2019-08-08] MEDS: AZITHROMYCIN 250 MG TABLET PO SCH (08:48)
[2019-08-08] MEDS: DILTIAZEM HCL 240 MG CAP.SR.24H PO SCH (08:49)
[2019-08-08] MEDS: CHOLECALCIFEROL 1,000 UNIT CAPSULE PO SCH (08:49)
[2019-08-08] MEDS: PANTOPRAZOLE SODIUM 20 MG TABLET.DR PO SCH (08:50)
[2019-08-08] MEDS: MAGNESIUM OXIDE 400 MG TABLET PO SCH (08:50)
[2019-08-08] MEDS: SERTRALINE HCL 100 MG TABLET PO SCH (08:50)
[2019-08-08] MEDS: LOSARTAN POTASSIUM 50 MG TABLET PO SCH (08:51)
[2019-08-08] MEDS: predniSONE 20 MG TABLET PO SCH (09:19)
[2019-08-08 10:28] LABS: Hematocrit 46.3 % (42.0-52.0); Hemoglobin 15.7 gm/dL (13.5-18.0); Mean Cell Volume 99.1 fl (78-100); Mean Corpuscular Hemoglobin 33.6 pg (27-31); Mean Corpuscular Hgb Conc 33.9 g/dl (32-36); Mean Platelet Volume 8.5 fl (8-11.3); Neutrophil # 14.8 K/mm3 (1.3-6.0); Neutrophil % 87.2 % (42-75.0); Platelet Count 268 K/mm3 (150-450); Red Blood Count 4.67 M/mm3 (4.7-6.0); Red Cell Distribution Width 12.9 % (11.5-14.0)
[2019-08-08 10:42] LABS: Albumin * 3.9 gm/dl (3.4-5.0); Anion Gap 12.4 mmol/L (6.8-13.8); BUN/Creatinine Ratio 29.8 (9.0-21.6); Bilirubin, Total 0.2 mg/dL (0.0-1.1); Ca. Corrected For Albumin 9.2 mg/dL (8.4-10.2); Calcium * 9.4 mg/dL (7.9-10.9); Carbon Dioxide 28.6 mmol/L (24-32.6); Total Protein 7.3 gm/dL (6.2-8.2)
[2019-08-08] MEDS: HYDROCHLOROTHIAZIDE 25 MG TABLET PO SCH (10:44)
--- NOTE | 2019-08-08 13:04 | DS ---
Transfer Discharge Summary - Diagnosis(s)/Problems (1) Acute respiratory failure Problem: Acute (2) Status asthmaticus with COPD (chronic obstructive pulmonary disease) Problem: Acute (3) COPD exacerbation Problem: Acute (4) Current every day smoker Problem: Chronic (5) COPD with asthma Problem: Chronic - Course Description of Stay: Farooq MERCADO is a 64-year-old male patient well-known to me who presented to the emergency room with marked dyspnea. He was in acute respiratory failure with hypoxia as evidenced with increasing dyspnea and decreasing SA O2 levels requiring BiPAP. P/F ratio less than 300 at intervals. He was tachypneic with prolonged expiratory phase and labored breathing with using secondary muscles of respiration. Lab and x-ray were not suggestive of an infectious process or a congestive heart failure process. He has a long-standing history of COPD and nicotine abuse. He was admitted to receive albuterol breathing treatments and received a 60 mg IV dose of Solu-Medrol in the emergency room. After admission I continued the Solu-Medrol every 6 hours. I changed his breathing solutions to DuoNeb yesterday. I contacted Dr. Hutchins (pulmonology) at [facility] last evening. He concurred with the ongoing treatment. I spoke with the family last night about possibly transferring today and today they would like to be transferred as he has not made any progress. His oxygen saturations are satisfactory- well into the 90%'s range on 3 L nasal cannula O2. But with even minor exertion of getting out of bed or walking a few steps to the bathroom he becomes acutely dyspneic and anxious. He has been using BiPAP since the emergency room And he tolerates that very well and he is able to rest with it on. He continues to have expiratory wheezes and prolonged expiratory phase and using secondary muscles of respiration for exhalation. Ambulation seems to exacerbate the dyspnea a lot. . He has had 3 chest x-rays since admission and all are unremarkable in appearance except for COPD. I did a blood gas last evening that was essentially normal. pH was 7.45. Total PCO2 was 27. The PCO2 and bicarb are both normal. He is in stable condition at the time of transfer. He will be transferred by EMS to [facility]. On admission he was on 3 blood pressure medicines including amlodipine, metoprolol, and losartan. I withdrew the metoprolol and his blood pressure did rise but his heart rate also spit up to between 105 and 110 at rest. I withdrew the amlodipine and replaced it with diltiazem CD 240 mg 1 p.o. daily. His blood pressure is still a little high but some of that is due to the steroids he has been receiving. He has not had any cardiovascular symptoms. He has become more anxious and I placed him on lorazepam 1 mg every 8 hours as needed today the first dose seems to have helped some. [facility] hospitalist has agreed to accept this patient in transfer at 1:15 PM per telephone call. Procedures Performed: none - Results and Findings Results and Findings: Laboratory Results - last 24 hr 08/07/19 08/08/19 08/08/19 17:35 10:24 10:24 WBC 17.0 H RBC 4.67 L Hgb 15.7 Hct 46.3 MCV 99.1 MCH 33.6 H MCHC 33.9 RDW 12.9 Plt Count 268 MPV 8.5 Immature Gran % (Auto) 0.60 H Immature Gran # (Auto) 0.11 H Neutrophils % 87.2 H Lymphocytes % 5.1 L Monocytes % 6.9 Eosinophils % 0.0 Basophils % 0.2 Nucleated RBC % 0.0 Neutrophils # 14.8 H Lymphocytes # 0.87 L Monocytes # 1.2 H Eosinophils # 0.0 Absolute Basophils 0.0 pCO2 38.2 pO2 77.1 L HCO3 25.8 Total CO2 27.0 H Base Excess 1.9 ABG pH 7.45 ABG O2 Sat (Measured) 95.9 Sodium 134 Plasma Sodium 135 Potassium 4.0 Chloride 97 Carbon Dioxide 28.6 Anion Gap 12.4 BUN 28 H D Creatinine 0.94 Est GFR (Non-Af Amer) 85 BUN/Creatinine Ratio 29.8 H Random Glucose 145 H Calcium 9.4 Calcium Adj for Albumin 9.2 Total Bilirubin 0.2 AST 37 ALT 69 H Alkaline Phosphatase 89 Total Protein 7.3 Albumin 3.9 - Medications Medications: Active Medications Albuterol/Ipratropium (Duoneb 2.5-0.5mg/3ml Soln) 3 ml IH Q4HRT PRN PRN Reason: Shortness Of Breath Stop: 09/04/19 10:26 Last Admin: 08/06/19 21:46 Dose: 3 ml Documented by: Albuterol/Ipratropium (Duoneb 2.5-0.5mg/3ml Soln) 3 ml IH Q6HRT [facility] Stop: 09/06/19 10:16 Last Admin: 08/08/19 06:04 Dose: 3 ml Documented by: Aspirin (Aspirin Enteric Coated) 81 mg PO DAILY [facility] Stop: 09/05/19 09:01 Last Admin: 08/08/19 08:48 Dose: 81 mg Documented by: Azithromycin (Zithromax) 250 mg PO DAILY [facility]; Protocol Stop: 08/09/19 09:01 Last Admin: 08/08/19 08:48 Dose: 250 mg Documented by: Cholecalciferol (Vitamin D) 2,000 unit PO DAILY [facility] Stop: 09/05/19 09:01 Last Admin: 08/08/19 08:49 Dose: 2,000 unit Documented by: Diltiazem HCl (Cardizem Cd) 240 mg PO Q24H [facility] Stop: 09/06/19 09:16 Last Admin: 08/08/19 08:49 Dose: 240 mg Documented by: Diphenhydramine HCl (Benadryl) 50 mg PO HS PRN PRN Reason: Sleep Stop: 09/04/19 21:46 Last Admin: 08/05/19 21:58 Dose: 50 mg Documented by: Hydrochlorothiazide (Hydrodiuril) 25 mg PO DAILY@1100 [facility] Stop: 09/06/19 11:01 Last Admin: 08/08/19 10:44 Dose: 25 mg Documented by: Lorazepam (Ativan) 1 mg PO Q8H PRN PRN Reason: Anxiety Stop: 09/07/19 08:31 Last Admin: 08/08/19 08:42 Dose: 1 mg Documented by: Losartan Potassium (Cozaar) 100 mg PO DAILY [facility] Stop: 09/05/19 09:01 Last Admin: 08/08/19 08:51 Dose: 100 mg Documented by: Magnesium Oxide (Mag-Ox 400) 200 mg PO DAILY [facility] Stop: 09/05/19 09:01 Last Admin: 08/08/19 08:50 Dose: 200 mg Documented by: Methylprednisolone Sodium Succinate (Solu-Medrol) 80 mg IV Q6H [facility] Stop: 09/05/19 13:01 Last Admin: 08/08/19 07:06 Dose: 80 mg Documented by: Nicotine (Nicoderm) 21 mg TD Q24H [facility] Stop: 09/04/19 19:46 Last Admin: 08/07/19 20:07 Dose: 21 mg Documented by: Non-Formulary Medication (Ibuprofen/Diphenhydramine Cit [Ibuprofen Pm Caplet]) 1 cap PO HS [facility] Stop: 09/04/19 21:01 Last Admin: 08/07/19 20:06 Dose: Not Given Documented by: Pantoprazole Sodium (Protonix) 20 mg PO DAILY [facility] Stop: 09/05/19 09:01 Last Admin: 08/08/19 08:50 Dose: 20 mg Documented by: Prednisone (Prednisone) 40 mg PO DAILY [facility] Stop: 09/04/19 10:31 Last Admin: 08/08/19 09:19 Dose: Not Given Documented by: Rosuvastatin Calcium (Crestor) 40 mg PO HS [facility] Stop: 09/04/19 21:01 Last Admin: 08/07/19 20:07 Dose: 40 mg Documented by: Sertraline HCl (Zoloft) 100 mg PO DAILY [facility] Stop: 09/05/19 09:01 Last Admin: 08/08/19 08:50 Dose: 100 mg Documented by: Discontinued Medications Albuterol Sulfate (Albuterol Sulfate 2.5 Mg/0.5ml) 2.5 mg IH ONCE ONE Stop: 08/04/19 21:09 Last Admin: 08/04/19 22:21 Dose: Not Given Documented by: Albuterol Sulfate (Albuterol Sulfate 2.5 Mg/0.5ml) 2.5 mg IH ONCE ONE Stop: 08/05/19 12:06 Last Admin: 08/05/19 12:12 Dose: 2.5 mg Documented by: Albuterol/Ipratropium (Duoneb 2.5-0.5mg/3ml Soln) 9 ml IH ONCE ONE Stop: 08/04/19 21:05 Last Admin: 08/04/19 21:15 Dose: 9 ml Documented by: Amlodipine Besylate (Norvasc) 10 mg PO DAILY [facility] Stop: 09/05/19 09:01 Last Admin: 08/06/19 09:08 Dose: 10 mg Documented by: Azithromycin (Zithromax) 500 mg PO ONCE ONE; Protocol Stop: 08/05/19 10:24 Last Admin: 08/05/19 11:49 Dose: 500 mg Documented by: Bisacodyl (Dulcolax) 10 mg PO ONCE ONE Stop: 08/07/19 09:13 Last Admin: 08/07/19 10:02 Dose: 10 mg Documented by: Diltiazem HCl (Cardizem Sr) 90 mg PO Q12H [facility] Stop: 09/06/19 08:16 Last Admin: 08/07/19 09:55 Dose: Not Given Documented by: Ceftriaxone Sodium (Rocephin 1000 Mg Er Piggyback) 1,000 mg in 100 mls @ 200 mls/hr IV ONCE ONE Stop: 08/05/19 00:39 Last Infusion: 08/05/19 00:55 Dose: Infused Documented by: Methylprednisolone Sodium Succinate (Solu-Medrol (Pf)) 125 mg IV ONCE ONE Stop: 08/04/19 21:12 Last Admin: 08/04/19 21:32 Dose: 125 mg Documented by: Methylprednisolone Sodium Succinate (Solu-Medrol) 60 mg IV ONCE [facility] Stop: 09/05/19 04:01 Last Admin: 08/06/19 03:59 Dose: 60 mg Documented by: Metoprolol Tartrate (Lopressor) 50 mg PO BID [facility] Stop: 09/04/19 21:01 Last Admin: 08/06/19 09:08 Dose: 50 mg Documented by: - Disposition Disposition: Short Term Hospital Inpatient Condition: Fair Discharge Date: 08/08/19 Discharge Time: 14:00
[2019-08-08 15:04] VITALS: BP 132/79
== END 2019-08-08 14:20 | disposition short-term general hospital (02) | DRG 190 ==
LOC: MS 20:51 → ER 20:51 → MS 08-05 00:45
PROVIDERS: ADMIT Family Medicine; ATTEND Family Medicine
DX: J45.902 Unspecified asthma with status asthmaticus; J96.01 Acute respiratory failure with hypoxia; I10 Essential (primary) hypertension; E78.5 Hyperlipidemia, unspecified; F41.9 Anxiety disorder, unspecified; F17.210 Nicotine dependence, cigarettes, uncomplicated; J44.1 Chronic obstructive pulmonary disease with (acute) exacerbation
CPT/HCPCS: 36415; 36600; 71010; 71020; 71045; 71046; 80053; 81001; 82803; 84145; 84484; 85025; 93005; 94640; 94660; 94760